=== PATIENT | female | born 1990 | race Two or more races ===

== ENCOUNTER 2017-11-14 01:59 | Emergency (ER) | payer OTHER ==
[2017-11-14 03:32] VITALS: BP 118/77; PULSE 89; TEMP 98.2; BMI 26.5
[2017-11-14] MEDS ORDERED: ALBUTEROL SO4 2.5/IPRATROPIUM 0.5 INH SOL 3 ML VIAL.NEB. NEB ONE (03:48)
[2017-11-14] MEDS ORDERED: ACETAMINOPHEN 325 MG TABLET (FP) PO ONE (03:49)
--- NOTE | 2017-11-14 03:57 | PDOC ---
History of Present Illness - General Chief Complaint: Cold Symptoms Stated Complaint: COUGH/LOWER BACK PAIN Time Seen by Provider: 11/14/17 03:10 History Source: Patient Exam Limitations: No Limitations - History of Present Illness Initial Comments: 11/14/17 03:52 Patient is a 27F with no significant medical history here today complaining of 1 month of cough and subjective fever. Patient denies sick contacts, history of asthma, allergies. Patient also complains of rhinorrhea. Denies chest pain and shortness of breath. Patient presented to the ED today because she developed left sided back pain after coughing. The back pain worsens with coughing, inspiration and movement. Patient denies nausea, vomiting. She states that she has not been able to hear out of her left ear. Patient uses q tips often. Past History - Past Medical History Allergies/Adverse Reactions: Allergies Allergy/AdvReac Type Severity Reaction Status Date / Time No Known Allergies Allergy Verified 11/14/17 03:32 Home Medications: Ambulatory Orders Acetaminophen W/ Codeine #3 [Tylenol # 3 -] 2 tab PO Q8H #30 tablet MDD 6 Azithromycin 500 mg PO DAILY #3 tablet 11/14/17 - Suicide/Smoking/Psychosocial Hx Smoking History: Never smoked Have you smoked in the past 12 months: No Information on smoking cessation initiated: No Hx Alcohol Use: No Drug/Substance Use Hx: No Review of Systems - Review of Systems Comments:: 11/14/17 03:55 GENERAL/CONSTITUTIONAL:+fever +chills. No weakness. HEAD, EYES, EARS, NOSE AND THROAT: No change in vision. No ear pain or discharge. No sore throat. CARDIOVASCULAR: No chest pain or shortness of breath RESPIRATORY: No cough, wheezing, or hemoptysis. GASTROINTESTINAL: No nausea, vomiting, diarrhea or constipation. GENITOURINARY: No dysuria, frequency, or change in urination. MUSCULOSKELETAL: No joint or muscle swelling or pain. No neck pain. +back pain. SKIN: No rash NEUROLOGIC: No headache, vertigo, loss of consciousness, or change in strength/ sensation. ENDOCRINE: No increased thirst. No abnormal weight change HEMATOLOGIC/LYMPHATIC: No anemia, easy bleeding, or history of blood clots. ALLERGIC/IMMUNOLOGIC: No hives or skin allergy. *Physical Exam - Vital Signs Last Vital Signs Temp Pulse Resp BP Pulse Ox 98.2 F 89 18 118/77 96 11/14/17 02:00 11/14/17 02:00 11/14/17 02:00 11/14/17 02:00 11/14/17 02:00 - Physical Exam Comments: 11/14/17 03:55 GENERAL: Awake, alert, and fully oriented, in no acute distress HEAD: No signs of trauma, normocephalic, atraumatic EYES: PERRLA, EOMI, sclera anicteric, conjunctiva clear ENT: Auricles normal inspection, hearing grossly normal, nares patent, oropharynx clear without exudates. Moist mucosa. Multiple excoriations in both ears, no earwax or inflammation in TMs NECK: Normal ROM, supple, no lymphadenopathy, JVD, or masses LUNGS: No distress, speaks full sentences, clear to auscultation bilaterally HEART: Regular rate and rhythm, normal S1 and S2, no murmurs, rubs or gallops, peripheral pulses normal and equal bilaterally. ABDOMEN: Soft, nontender, normoactive bowel sounds. No guarding, no rebound. No masses EXTREMITIES: Normal inspection, Normal range of motion, no edema. No clubbing or cyanosis. NEUROLOGICAL: Cranial nerves II through XII grossly intact. Normal speech, normal gait, no focal sensorimotor deficits SKIN: Warm, Dry, normal turgor, no rashes or lesions noted. ED Treatment Course - RADIOLOGY Radiology Studies Ordered: Category Date Time Status CHEST PA & LAT [RAD] Stat Radiology 11/14/17 03:10 Ordered Medical Decision Making - Medical Decision Making 11/14/17 03:56 Patient is 27F here today with cough and subjective fever. Vitals normal and stable in ED. History concerning for atypical pneumonia, will workup with CXR. Will also evaluate with UA/Upreg. Believe back pain is caused by MSK pain. Will treat with albuterol for possible asthma. Will treat pain. 11/14/17 05:17 CXR shows no infiltrate, but patient continues to wheeze. Will cover with azithro, give decadron. Given tylenol with codeine for cough. *DC/Admit/Observation/Transfer Diagnosis at time of Disposition: Atypical pneumonia - Discharge Dispostion Disposition: HOME Condition at time of disposition: Good Decision to Admit order: No - Prescriptions Prescriptions: Acetaminophen W/ Codeine #3 [Tylenol # 3 -] 2 tab PO Q8H #30 tablet MDD 6 Azithromycin 500 mg PO DAILY #3 tablet - Referrals - Patient Instructions Printed Discharge Instructions: DI for Atypical Pneumonia Additional Instructions: Please return if you have any new, worsening or concerning symptoms. Please follow up with your primary care physician this week. - Post Discharge Activity
[2017-11-14] MEDS ORDERED: ACETAMINOPHEN 325 MG TABLET (FP) ONE (04:04)
[2017-11-14] MEDS ORDERED: ALBUTEROL SO4 0.083% IH SOL 2.5 MG/3 ML VIAL.NEB. NEB ONE (04:04)
[2017-11-14 04:18] LABS: URINE APPEARANCE CLEAR; URINE BILIRUBIN NEGATIVE (<2.0 mg/dL); URINE COLOR YELLOW; URINE GLUCOSE (UA) NEGATIVE (NEGATIVE); URINE KETONE NEGATIVE (NEGATIVE); URINE LEUK ESTERASE NEGATIVE (NEGATIVE); URINE NITRITE NEGATIVE (NEGATIVE); URINE PROTEIN NEGATIVE (NEGATIVE)
[2017-11-14 04:23] LABS: HCG,QUALITATIVE URINE NEGATIVE
[2017-11-14 04:26] LABS: CALCIUM OXALATE CRYSTALS RARE /hpf (NONE SEEN); EPI CELLS RARE /HPF (FEW); URINE HYALINE CAST 1 /lpf; URINE MUCUS RARE
[2017-11-14] MEDS ORDERED: AZITHROMYCIN 250 MG TABLET PO ONE (05:15)
[2017-11-14] MEDS ORDERED: DEXAMETHASONE LIQUID 0.5 MG/5 ML 240 ML BULK BOTTLE PO ONE (05:15)
[2017-11-14] MEDS ORDERED: ACETAMINOPHEN WITH CODEINE 300MG/30MG TABLET PO ONE (05:17)
[2017-11-14] MEDS ORDERED: DEXAMETHASONE SOD PHOSPHATE 10 MG/1 ML VIAL ONE (05:23)
[2017-11-14] MEDS ORDERED: AZITHROMYCIN 250 MG TABLET ONE (05:23)
[2017-11-14] MEDS ORDERED: ACETAMINOPHEN WITH CODEINE 300MG/30MG TABLET ONE (05:23)
--- NOTE | 2017-11-14 06:10 | PDOC ---
Attending Attestation - Resident Resident Name: Matty Brandon - ED Attending Attestation I have performed the following: I have examined & evaluated the patient, The case was reviewed & discussed with the resident, I agree w/resident's findings & plan <Kate Molina - Last Filed: 11/14/17 06:10> - HPI HPI: 11/14/17 06:10 The patient is a 27 year old female with no significant past medical history presents to the emergency department with back pain. The patient presents with L. sided back pain that was brought on by a persistent cough for the past one months, accompanied with subjective fever. Denies asthma. Denies sick contact. Denies chills or a headache. Denies chest pain or shortness of breath. Denies Allergies: NKDA. Social history: None reported. Surgical history: None reported PCP: None reported. - Physicial Exam PE: 11/14/17 06:10 GENERAL: Sleeping comfortably. Speaking in full sentence. Chronic cough. Awake, alert, and fully oriented, in no acute distress HEAD: No signs of trauma EYES: PERRLA, EOMI, sclera anicteric, conjunctiva clear ENT: Auricles normal inspection, hearing grossly normal, nares patent, oropharynx clear without exudates. Moist mucosa NECK: Normal ROM, supple, no lymphadenopathy, JVD, or masses LUNGS: (+) No wheezing of the lungs. Breath sounds equal, clear to auscultation bilaterally. No wheezes, and no crackles HEART: Regular rate and rhythm, normal S1 and S2, no murmurs, rubs or gallops ABDOMEN: Soft, nontender, normoactive bowel sounds. No guarding, no rebound. No masses EXTREMITIES: (+) L. sided T11-12 area pain. Normal range of motion, no edema. No clubbing or cyanosis. No cords, erythema, or tenderness NEUROLOGICAL: Neurologically intact. Cranial nerves II through XII grossly intact. Normal speech, normal gait SKIN: Warm, Dry, normal turgor, no rashes or lesions noted. - Medical Decision Making 11/14/17 06:11 Documentation prepared by Catie Huitron, acting as medical technologist hematology for Kate Molina MD. <Catie Huitron - Last Filed: 11/14/17 06:11>
== END 2017-11-14 05:47 | disposition home or self-care (01) ==
LOC: JER 01:59
PROC: 3E0F7GC Introduction of Other Therapeutic Substance into Respiratory Tract, Via Natural or Artificial Opening (ICD-10-PCS; principal; 2017-11-14)
DX: J18.9 Pneumonia, unspecified organism (principal)
CPT/HCPCS: 71046-TC-FY; 81003; 81015; 84703; 94640; 99281-25; J7620

== ENCOUNTER 2022-03-28 14:19 | Emergency (ER) | payer OTHER ==
[2022-03-28 14:29] VITALS: BP 118/75; PULSE 95; RESP 18; TEMP 98.4; BMI 39.3
[2022-03-28 16:11] LABS: EPI CELLS 35 /uL (0-25.1); HYALINE CASTS 1 /uL (0-3.1); PH,URINE 5.5 (5.0-8.0); URINE APPEARANCE CLOUDY; URINE BACTERIA 866 /uL (0-1359); URINE BILIRUBIN NEGATIVE (NEGATIVE); URINE COLOR YELLOW; URINE GLUCOSE (UA) NEGATIVE (NEGATIVE); URINE KETONE 2+ (NEGATIVE); URINE LEUK ESTERASE 2+ (NEGATIVE); URINE NITRITE NEGATIVE (NEGATIVE); URINE PROTEIN NEGATIVE (NEGATIVE); URINE UROBILINOGEN 0.2 mg/dL (0.2-1.0); URINE WBC 1497 /uL (0-25.8)
[2022-03-28] MEDS ORDERED: CEPHALEXIN MONOHYDRATE 500 MG CAPSULE (UD) PO ONE (16:13)
[2022-03-28] MEDS ORDERED: CEPHALEXIN MONOHYDRATE 500 MG CAPSULE (UD) ONE (16:18)
[2022-03-28 17:00] LABS: URINE RBC 48 /uL (0-23.9)
== END 2022-03-28 19:03 | disposition home or self-care (01) ==
LOC: JERFT 14:19 → JER 14:19 → JERFT 19:03
DX: O23.42 Unspecified infection of urinary tract in pregnancy, second trimester (principal); Z3A.16 16 weeks gestation of pregnancy
CPT/HCPCS: 81003; 87086; 99283-25